=== PATIENT | male | born 1985 | race Caucasian/White ===

== ENCOUNTER 2024-01-13 03:30 | Emergency (ER) | payer OTHER ==
[~2024-01-13] VITALS: Ht 165.1 cm; Wt 97.5 kg
[2024-01-13 03:40] VITALS: BP_SYST 129; PULSE 68; RESP 16; TEMP 96.8; O2SAT 97
[2024-01-13] MEDS ORDERED: NAPR-1172 PO (04:10)
[2024-01-13 04:15] VITALS: O2SAT 99
[2024-01-13 04:24] VITALS: BP_SYST 131; PULSE 74; RESP 16; TEMP 97.8
== END 2024-01-13 04:20 | disposition home or self-care (01) ==
LOC: SED 03:30
DX: S29.011A Strain of muscle and tendon of front wall of thorax, initial encounter (principal); Z79.899 Other long term (current) drug therapy; X58.XXXA Exposure to other specified factors, initial encounter; Y93.89 Activity, other specified; Y92.89 Other specified places as the place of occurrence of the external cause; Y99.8 Other external cause status
CPT/HCPCS: 99282